=== PATIENT | male | born 1980 | race Caucasian/White ===

== ENCOUNTER 2017-01-08 15:45 | Emergency (ER) | payer MEDICAID ==
[~2017-01-08] VITALS: Ht 177.8 cm; Wt 70.0 kg
[~2017-01-08 15:45] MED LIST: CIPR500T4 PO; METR500T PO
[2017-01-08 15:47] VITALS: Ht 177.8 cm; Wt 70.0 kg
[2017-01-08 16:59] LABS: ADD SCAN DIFF NO
[2017-01-08 17:01] LABS: BASOPHIL # 0.1 10^3/ul (0.0-0.1); BASOPHILS % 0.9 % (0.0-2.0); EOSINOPHILS # 0.1 10^3/ul (0.0-0.5); HEMATOCRIT 40.8 % (42.0-52.0); HEMOGLOBIN 14.3 g/dl (14.0-18.0); LYMPHOCYTES # 2.7 10^3/ul (0.8-2.9); LYMPHOCYTES % 47.5 % (15.0-51.0); MEAN CORPUSCULAR VOLUME 91.3 fl (82.0-101.0); MONOCYTE # 0.4 10^3/ul (0.3-0.9); MONOCYTES % 6.3 % (0.0-11.0); NEUTROPHIL # 2.4 10^3/ul (1.6-7.5); NEUTROPHILS % 43.1 % (39.0-77.0); PLATELET COUNT 243 10^3/UL (140-415); RED BLOOD COUNT 4.47 10^6/ul (4.70-6.10); RED CELL DISTRIBUTION WIDTH 12.8 % (11.5-14.5); WHITE BLOOD COUNT 5.6 10^3/ul (4.8-10.8)
[2017-01-08 17:35] LABS: ALANINE AMINOTRANSFERASE 37 IU/L (13-69); ALBUMIN 4.9 g/dl (3.3-4.9); ALBUMIN/GLOBULIN RATIO 1.28; ALKALINE PHOSPHATASE 82 IU/L (42-121); ANION GAP 13 (8-16); ASPARTATE AMINO TRANSFERASE 33 IU/L (15-46); BILIRUBIN,INDIRECT 0.5 mg/dl (0-1.1); BILIRUBIN,TOTAL 0.5 mg/dl (0.2-1.3); BLOOD UREA NITROGEN 16 mg/dl (7-20); CALCIUM 9.3 mg/dl (8.4-10.2); CARBON DIOXIDE 27 mmol/L (21-31); CHLORIDE 102 mmol/L (97-110); CREATININE 0.93 mg/dl (0.61-1.24); GLUCOSE 100 mg/dl (70-220); POTASSIUM 4.1 mmol/L (3.5-5.1); SODIUM 138 mmol/L (135-144); TOTAL PROTEIN 8.7 g/dl (6.1-8.1)
[2017-01-08 17:48] LABS: TROPONIN-I < 0.010 ng/ml (0.00-0.12)
--- NOTE | 2017-01-08 17:48 | RADRPT ---
PROCEDURE: XR Chest. CLINICAL INDICATION: chest pain TECHNIQUE: Single frontal view of the chest was obtained COMPARISON: 01/15/2016 FINDINGS: The heart and mediastinum are within normal limits. The lungs are clear. There is no pleural effusion or pneumothorax. RPTAT: AA IMPRESSION: No acute disease. .Tanner Correa MD, MD Date Time Electronically viewed and signed by .Tanner Correa MD, on 01/08/2017 17:48 .S/
[2017-01-08] MEDS ORDERED: ACET500C5 PO (18:25)
--- NOTE | 2017-01-08 18:32 | ERD ---
ER Documentation Chief Complaint Date/Time DATE: 01/08/17 TIME: 18:28 Chief Complaint pt bib family with c/o "hands going numb, tearful, breathing fast" no CP HPI Patient is a 36-year-old male who presents to the emergency department with bilateral "hand numbness and fast breathing." Patient states that his symptoms started approximately 15 minutes prior to his arrival to the ED. Currently patient states his symptoms have improved. Patient appears tearful and is crying. Patient reports shaking and chills. Patient denies any chest pain, arm pain, diaphoresis. Patient denies any recent surgeries, recent travel, history of DVT or PE. Patient reports palpitations and shortness of breath. Patient states approximately 2 hours ago he did drink a red bull. Patient denies any abdominal pain, nausea, vomiting, loss of consciousness. Patient reports increased stress at work, however denies any SI, HI or depressive thoughts. Patient reports normal appetite, normal sleep schedule or no family stress. ROS All systems reviewed and are negative except as per history of present illness. Medications Home Meds Active Scripts Acetaminophen* (Tylophen*) 500 Mg Capsule, 1 CAP PO Q6H Y for PAIN AND OR ELEVATED TEMP, #20 CAP Prov:GAVINO UPTON PA-C 01/08/17 Metronidazole* (Flagyl*) 500 Mg Tablet, 500 MG PO TID for 8 Days, TAB Prov:MAE VALE 01/17/16 Ciprofloxacin Hcl* (Ciprofloxacin Hcl*) 500 Mg Tablet, 500 MG PO BID for 8 Days , TAB Prov:MAE VALE 01/17/16 Allergies Allergies: Coded Allergies: No Known Allergy (Unverified , 01/15/16) PMhx/Soc History of Surgery: No Anesthesia Reaction: No Hx Neurological Disorder: No Hx Respiratory Disorders: No Hx Cardiac Disorders: No Hx Psychiatric Problems: No Hx Miscellaneous Medical Probl: No Hx Alcohol Use: Yes (occasional) Hx Substance Use: No Hx Tobacco Use: No Smoking Status: Never smoker Physical Exam Vitals Vital Signs Date Time Temp Pulse Resp B/P Pulse Ox O2 Delivery O2 Flow Rate FiO2 01/08/17 15:47 98.3 98 22 148/60 99 Physical Exam GENERAL: Well-developed, well-nourished male. Appears anxious. Crying. HEAD: Normocephalic, atraumatic. EYES: Pupils are equally reactive bilaterally. EOMs grossly intact. Bilateral conjunctival erythema secondary to crying. ENT: Moist mucous membranes. No uvula deviation. No kissing tonsils. NECK: Supple. No lymphadenopathy or thyromegaly. No meningismus. LUNG: Clear to auscultation bilaterally. No rhonchi, wheezing, rales or coarse breath sounds. HEART: Regular rate and rhythm. No murmurs, rubs or gallops. No pain with chest wall palpation. BACK: No midline tenderness. NEUROLOGIC: Alert and oriented x3, cooperative. Mood and affect appropriate to situation. Cranial nerves II through XII are grossly intact. Normal speech. Motor exam: 5/5 strength in upper and lower extremities. Sensory exam: Sensation intact to light touch on all four extremities. Cerebellar function exam: No dysmetria on [id number] test. Steady gait. No pronator drift. . SKIN: Normal color. Warm and dry. No rashes or lesions. Result Diagram: 01/08/17 1639 01/08/17 1639 Results 24 hrs Laboratory Tests Test 01/08/17 16:39 White Blood Count 5.610^3/ul Red Blood Count 4.4710^6/ul Hemoglobin 14.3g/dl Hematocrit 40.8% Mean Corpuscular Volume 91.3fl Mean Corpuscular Hemoglobin 32.0pg Mean Corpuscular Hemoglobin Concent 35.0g/dl Red Cell Distribution Width 12.8% Platelet Count 59089^3/UL Mean Platelet Volume 10.0fl Neutrophils % 43.1% Lymphocytes % 47.5% Monocytes % 6.3% Eosinophils % 2.0% Basophils % 0.9% Nucleated Red Blood Cells % 0.0/100WBC Neutrophils # 2.410^3/ul Lymphocytes # 2.710^3/ul Monocytes # 0.410^3/ul Eosinophils # 0.110^3/ul Basophils # 0.110^3/ul Nucleated Red Blood Cells # 0.010^3/ul Sodium Level 138mmol/L Potassium Level 4.1mmol/L Chloride Level 102mmol/L Carbon Dioxide Level 27mmol/L Anion Gap 13 Blood Urea Nitrogen 16mg/dl Creatinine 0.93mg/dl Glucose Level 100mg/dl Calcium Level 9.3mg/dl Total Bilirubin 0.5mg/dl Direct Bilirubin 0.00mg/dl Indirect Bilirubin 0.5mg/dl Aspartate Amino Transf (AST/SGOT) 33IU/L Alanine Aminotransferase (ALT/SGPT) 37IU/L Alkaline Phosphatase 82IU/L Troponin I < 0.010ng/ml Total Protein 8.7g/dl Albumin 4.9g/dl Globulin 3.80g/dl Albumin/Globulin Ratio 1.28 Procedures/MDM ED COURSE: The patient was stable throughout ED course. I kept the patient and/or family informed of laboratory and diagnostic imaging results throughout the ED course. EKG: Read by Dr. Cuevas, attending physician. EKG shows sinus bradycardia at a rate of 50 bpm. No arrhythmias, acute ST elevations or T wave changes were noted. DIAGNOSTIC IMAGING: Read by radiologist. DIAGNOSTIC IMAGING REPORT Patient: GEORGE SHIN : 1980 Age: 36 Sex: M MR #: [id number] DOS: 01/08/17 1621 Ordering MD: GAVINO UPTON PA-C Location: [facility] Room/Bed: PROCEDURE: XR Chest. CLINICAL INDICATION: chest pain TECHNIQUE: Single frontal view of the chest was obtained COMPARISON: 01/15/2016 FINDINGS: The heart and mediastinum are within normal limits. The lungs are clear. There is no pleural effusion or pneumothorax. RPTAT: AA IMPRESSION: No acute disease. .Tanner Correa MD, MD Date Time Electronically viewed and signed by .Tanner Correa MD, MD on 01/08/2017 17: 48 .S/ CC: GAVINO UPTON PA-C PROCEDURES: None. MEDICAL DECISION MAKING: This is a 36 year old male who presents with shortness of breath, palpitations and hand numbness after consuming a red bull energy drink. Patient denied any leg swelling, recent surgeries, travel, history of PE or DVT. Vital signs were reviewed. Patient was afebrile. Patient was not hypoxic. Cardiac exam was normal. Lung exam was normal. EKG showed sinus bradycardia. CXR was within normal limits. CBC showed no evidence of systemic infection or severe anemia. CMP showed no evidence of electrolyte abnormalities, severe acidosis, alkalosis , renal failure, or liver disease. Troponin was negative. PERC score of 0. Upon discussing the patient's blood work results, EKG and imaging studies, patient appeared less anxious. Patient stated that his symptoms had improved. Given these findings, the patients presentation is most consistent with palpitations and shortness of breath. I have a much lower clinical concern for acute coronary syndrome, arrhythmia, aortic dissection, ruptured abdominal aortic aneurysm, pericarditis, pulmonary embolism, pneumothorax, pneumonia, esophageal rupture, rib fracture. PRESCRIPTIONS: Tylenol DISCHARGE: At this time, patient is stable for discharge and outpatient management. I have instructed the patient to follow-up with his/her primary care physician in 1-2 days. If symptoms persist, patient may need to see a power generation equipment repairer for further examinations and testing including stress test and 24 hour holter monitoring. Patient provided with a copy of all imaging studies and blood work Patient advised to abstain from energy drinks. I have instructed the patient to promptly return to the ER at any time for any new or worsening symptoms including increased increased pain, fever, nausea, vomiting, numbness, weakness , diaphoresis or LOC. The patient and/or family expressed understanding of and agreement with this plan. All questions were answered. Home care instructions were provided. Departure Diagnosis: Primary Impression: Palpitations Additional Impression: Shortness of breath Condition: Stable Patient Instructions: Coping with Shortness of Breath: Controlling Stress, Palpitations Referrals: ANITA CONTE CARLOS M. MD BAGHERI, BRUCE CHANG, KOOK MD COHEN,UMU CABRERA Additional Instructions: Call your primary care doctor TOMORROW for an appointment during the next 1-2 days.See the doctor sooner or return here if your condition worsens before your appointment time. Patient should follow-up with a power generation equipment repairer for further management of his symptoms including possible 24 hour Holter monitoring. GAVINO UPTON PA-C Jan 08, 2017 18:32
== END 2017-01-08 18:34 | disposition home or self-care (01) ==
LOC: FTE 15:45
DX: R00.2 Palpitations (principal); R06.02 Shortness of breath
CPT/HCPCS: 71010; 80053; 84484; 85025; Z7502; 93005